=== PATIENT | male | born 1940 | race Caucasian/White ===

== ENCOUNTER → 2016-10-20 | Outpatient (CLI) | payer MEDICARE, OTHER | LOC: US 08:30 → NM 09:30 | DX: Z08 Encounter for follow-up examination after completed treatment for malignant neoplasm (principal); Z85.46 Personal history of malignant neoplasm of prostate; Z85.528 Personal history of other malignant neoplasm of kidney; D64.9 Anemia, unspecified; R93.7 Abnormal findings on diagnostic imaging of other parts of musculoskeletal system; R16.1 Splenomegaly, not elsewhere classified | CPT/HCPCS: 76705; 78306; A9503 ==